=== PATIENT | male | born 1960 | race Caucasian/White ===

== ENCOUNTER → 2021-05-27 13:48 | Outpatient (CLI) | payer OTHER, SELFPAY ==
[2021-05-27 14:21] LABS: COVID19 -Nasal RAPID POSITIVE (Negative)
== END ==
PROVIDERS: Visit Provider Physician Assistant
DX: U07.1 COVID-19 (principal); R06.02 Shortness of breath; R50.9 Fever, unspecified
CPT/HCPCS: 87635

== ENCOUNTER 2021-05-27 14:09 | Observation (INO) | payer OTHER, SELFPAY ==
[2021-05-27] VITALS (13 sets, daily range): BP systolic 119–125; BP diastolic 70–74; PULSE 69–122; RESP 14–29; TEMP 39.3–39.5; O2SAT 91–96
--- NOTE | 2021-05-27 14:30 | DI.RAD.S_ITS ---
PROCEDURE: XR CHEST 1V INDICATIONS: +COVID TECHNIQUE: One view of the chest was acquired. COMPARISON: None. FINDINGS: Surgical changes and devices: None. Lungs and pleura: Lungs are abnormal with patchy bilateral pneumonia distributed through the lung parenchyma symmetrically, through the upper, mid and lower lungs.. No pleural effusions or pneumothorax. Mediastinum: Mediastinal contours appear normal. Heart size is normal. Bones and chest wall: No suspicious bony lesions. Overlying soft tissues appear unremarkable. IMPRESSION: Patchy bilateral areas of infiltration involving the lung parenchyma symmetrically are present, consistent with the stated clinical history Dictated by: Louis Verdugo M.D. on 05/27/2021 at 15:11 Approved by: Louis Verdugo M.D. on 05/27/2021 at 15:12
[2021-05-27 14:53] LABS: Add Manual Diff / Slide Review NO; Basophils Absolute Auto 0 /uL (0-100); Basophils Percent Auto 0.2 % (0-2); Eosinophils Absolute Auto 0 /uL (0-450); Hematocrit 44.6 % (41-53); Hemoglobin 15.4 g/dL (13.5-17.5); Lymphocytes Absolute Auto 800 /uL (1100-4500); Lymphocytes Percent Auto 16.3 % (25-40); Mean Corpuscular HGB Conc 34.6 % (30-36); Mean Corpuscular Hemoglobin 31.3 PG (26-34); Mean Corpuscular Volume 90.4 fL (80-100); Monocytes Absolute Auto 500 /uL (0-900); Monocytes Percent Auto 9.9 % (3-14); Neutrophils Absolute Auto 3700 /uL (1500-7000); Neutrophils Percent Auto 73.6 % (50-75); Platelet Count 150 X10^3/uL (150-400); Red Blood Cell Count 4.93 X10^6/uL (4.5-5.9); Red Cell Distribution Width 13.9 % (11.6-14.8); White Blood Cell Count 5.1 X10^3/uL (4.5-11.0)
[2021-05-27 15:03] LABS: Lactate (Lactic Acid) 1.2 mmol/L (0.7-2.1); Lactate Dehydrogenase 1616 U/L (313-618)
[2021-05-27 15:05] LABS: Alanine Aminotransferase 78 IU/L (<50); Albumin 4.2 g/dL (3.5-5.0); Albumin Globulin Ratio 1.1 (1.0-2.8); Alkaline Phosphatase 44 U/L (38-126); Aspartate Aminotransferase 196 IU/L (17-59); BUN Creatinine Ratio 31.5 (6-22); Bilirubin Total 0.6 mg/dL (0.2-1.3); Blood Urea Nitrogen 17 mg/dL (9-20); C-Reactive Protein Quant 7.7 mg/dL (<1.0); Carbon Dioxide 23 mmol/L (22-32); Chloride 102 mmol/L (98-107); Estimated Glomerular Filt Rate > 60.0 mL/min (>60); Globulin 3.7 g/dL (1.7-4.1); Glucose 154 mg/dL (80-110); HEMOLYSIS < 15 (0-50); Potassium 3.9 mmol/L (3.4-5.1); Sodium 135 mmol/L (137-145); Total Protein 7.9 g/dL (6.3-8.2)
[2021-05-27] MEDS: ACETAMINOPHEN 325 MG TABLET 975 MG PO (15:13)
[2021-05-27 15:14] LABS: NT-proBNP (BNP-Adult 18+) 110 pg/mL (<125); Troponin I 0.031 ng/mL (0.01-0.034)
[2021-05-27 15:16] LABS: Creatine Kinase 9024 U/L (55-170)
[2021-05-27 15:19] LABS: Procalcitonin 0.48 ng/mL (<0.5)
[2021-05-27 15:29] LABS: CKMB % Relative Index 0.1 % (1.5-5.0); Creatine Kinase MB 8.39 ng/mL (<2.37)
[2021-05-27 15:33] LABS: D Dimer 552 ng/mL (<230)
--- NOTE | 2021-05-27 16:00 | ED.URI ---
HPI - URI/Sore Throat General Chief Complaint: Upper Respiratory Symptoms Stated Complaint: Possible COVID+, Sent from [facility] Time Seen by Provider: 05/27/21 14:24 Source: patient and family Mode of arrival: Ambulatory History of Present Illness HPI Narrative: Patient is a 60-year-old male with history of muscular dystrophy presenting from the walk-in clinic with positive COVID. He was exposed 6 days ago. He has had increased weakness and decreased taste. He has nothing tastes good and is not drinking much fluid. He is currently febrile at 1:03 a.m. and tachycardic. He denies any shortness of breath or chest pain. His oxygen level is 93% on room air. Apparently his daughter had as well. They were told by a physician never to have a vaccine visit could potentially worsen his condition. So he did not get the COVID vaccine. Related Data Home Medications Medication Instructions Recorded Confirmed No Known Home Medications 05/27/21 05/27/21 Allergies Allergy/AdvReac Type Severity Reaction Status Date / Time Penicillins Allergy Intermediate Verified 05/27/21 13:35 Review of Systems Review of Systems ROS Unobtainable: All systems reviewed & are unremarkable except as noted in HPI and below Constitutional Constitutional: Reports body ache(s), Reports chills, Reports fatigue, Reports fever(s) and Reports poor appetite Cardiovascular Cardiovascular: Denies chest pain, Denies edema, Denies irregular heart rhythm, Denies dyspnea and Denies dyspnea on exertion Respiratory Respiratory: Reports cough, Denies dyspnea and Denies dyspnea on exertion Gastrointestinal Gastrointestinal: Denies abdominal pain and Denies nausea Musculoskeletal Musculoskeletal: Denies back pain and Denies myalgias Integumentary/Breasts Skin/Breast: Denies rash Neurologic Neurologic: Reports as per HPI Endocrine Endocrine: Reports fatigue 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) Surgical History (Updated 05/27/21 @ 18:08 by Deepak Ivan DO) No pertinent past surgical history Social History Smoking Status: Never smoker Smoking Status: Never smoker alcohol intake frequency: 3 or more drinks per day Exam Initial Vital Signs Initial Vital Signs: Vital Signs Temperature 103.1 F H 05/27/21 14:10 Pulse Rate 122 H 05/27/21 14:10 Respiratory Rate 20 05/27/21 14:10 Blood Pressure 119/74 05/27/21 14:10 Pulse Oximetry 92 05/27/21 14:10 GENERAL: Alert large 60-year-old male appears to not feel well HEENT: Head atraumatic,EOMI, pupils reactive, face symmetric, moist mucous membranes CARDIOVASCULAR: Tachycardic regular RESPIRATORY: Mild crackles bilaterally no difficulty breathing no respiratory distress ABDOMEN: Soft, nontender. Normoactive bowel sounds all 4 quadrants. No guarding or rebound. EXTREMITIES: Normal range of motion, no clubbing or edema. Neurovascularly intact NEUROLOGICAL: Alert and oriented x4.Normal gait and speech. SKIN: Warm, dry, no laceration, no petechiae, no rashes or lesions. Course Orders Ordered: ED Orders 05/27/21 14:24 EKG-12 Lead Stat 05/27/21 14:25 C-Reactive Protein Quant Stat Complete Blood Count AUTO DIFF Stat Comprehensive Metabolic Panel Stat Lactate (Lactic Acid) Stat Lactate Dehydrogenase Stat NT-proBNP (BNP-Adult 18+) Stat Procalcitonin Stat Troponin & CK Cardiac Panel Stat 05/27/21 14:30 XR chest 1V Stat 05/27/21 15:10 Blood Culture Stat D Dimer Stat 05/27/21 16:53 Urine Culture Stat Urine Microscopic Stat Sodium Chloride (Normal Saline 0.9%) 1,000 mls @ 250 mls/hr IV CONT ENOCH Last Admin: 05/27/21 17:39 Dose: 250 mls/hr Documented by: CTRRIMA Sodium Chloride (Normal Saline 0.9%) 1,000 mls @ 1,000 mls/hr IV BOLUS ONE Stop: 05/27/21 19:54 Last Admin: 05/27/21 19:16 Dose: 1,000 mls/hr Documented by: Discontinued Medications Acetaminophen (Acetaminophen 325 Mg Tablet) 975 mg PO NOW ONE Stop: 05/27/21 14:46 Last Admin: 05/27/21 15:13 Dose: 975 mg Documented by: BTONER Sodium Chloride (Normal Saline 0.9%) 1,000 mls @ 1,000 mls/hr IV BOLUS ONE Stop: 05/27/21 17:06 Last Infusion: 05/27/21 17:38 Dose: 0 mls/hr Documented by: Admin: 05/27/21 16:32 Dose: 1,000 mls/hr Documented by: [email or web address] Vital Signs Vital signs: Vital Signs - 8 hr 05/27/21 14:10 05/27/21 14:37 05/27/21 15:00 Temperature 103.1 F H Pulse Rate 122 H 103 H 101 H Respiratory Rate 20 18 14 Blood Pressure 119/74 Pulse Oximetry 92 92 94 05/27/21 15:30 05/27/21 16:00 05/27/21 16:05 Temperature 102.8 F H Pulse Rate 100 H 113 H Respiratory Rate 15 27 H Blood Pressure 122/74 Pulse Oximetry 93 91 05/27/21 16:30 05/27/21 17:00 Temperature Pulse Rate 95 H 86 Respiratory Rate 17 23 Blood Pressure Pulse Oximetry 92 92 MDM - URI/Sore Throat Lab Data Attestation: I reviewed the patient's lab results. Result diagrams: 05/27/21 14:25 05/27/21 14:25 Labs: Lab Results 05/27/21 05/27/21 05/27/21 Range/Units 14:25 14:25 14:25 WBC 5.1 (4.5-11.0) X10^3/uL RBC 4.93 (4.5-5.9) X10^6/uL Hgb 15.4 (13.5-17.5) g/dL Hct 44.6 (41-53) % MCV 90.4 (80-100) fL MCH 31.3 (26-34) PG MCHC 34.6 (30-36) % RDW 13.9 (11.6-14.8) % Plt Count 150 (150-400) X10^3/uL Neut % (Auto) 73.6 (50-75) % Lymph % (Auto) 16.3 L (25-40) % [place] % (Auto) 9.9 (3-14) % Eos % (Auto) 0.0 L (2-4) % Baso % (Auto) 0.2 (0-2) % Neut # (Auto) 3700 (7895-3584) /uL Lymph # (Auto) 800 L (5999-4527) /uL [place] # (Auto) 500 (0-900) /uL Eos # (Auto) 0 (0-450) /uL Baso # (Auto) 0 (0-100) /uL D-Dimer (<230) ng/mL Sodium 135 L (137-145) mmol/L Potassium 3.9 (3.4-5.1) mmol/L Chloride 102 (98-107) mmol/L Carbon Dioxide 23 (22-32) mmol/L BUN 17 (9-20) mg/dL Creatinine 0.54 L (0.66-1.25) mg/dL Estimated GFR > 60.0 (>60) mL/min BUN/Creatinine Ratio 31.5 H (6-22) Glucose 154 H (80-110) mg/dL Lactate (0.7-2.1) mmol/L Calcium 9.0 (8.4-10.2) mg/dL Total Bilirubin 0.6 (0.2-1.3) mg/dL AST 196 H (17-59) IU/L ALT 78 H (<50) IU/L Alkaline Phosphatase 44 (38-126) U/L Lactate Dehydrogenase (313-618) U/L Total Creatine Kinase 9024 H (55-170) U/L CK-MB (CK-2) 8.39 H (<2.37) ng/mL CK-MB (CK-2) Rel Index 0.1 L (1.5-5.0) % Troponin I 0.031 (0.01-0.034) ng/mL C-Reactive Protein 7.7 H (<1.0) mg/dL NT-Pro-B Natriuret Pep 110 (<125) pg/mL Total Protein 7.9 (6.3-8.2) g/dL Albumin 4.2 (3.5-5.0) g/dL Globulin 3.7 (1.7-4.1) g/dL Albumin/Globulin Ratio 1.1 (1.0-2.8) Procalcitonin 0.48 (<0.5) ng/mL Urine RBC (0-5/HPF) Urine WBC (0-5/HPF) Ur Transition Epith Cell (0-5/HPF) Ur Renal Epithelial Cell (0-1/HPF) Amorphous Sediment Urine Bacteria (None) Hyaline Casts (None) Granular Casts (None) Other Casts Urine Mucus (Negative) Ur Culture Indicated? 05/27/21 05/27/21 05/27/21 Range/Units 14:25 14:25 15:10 WBC (4.5-11.0) X10^3/uL RBC (4.5-5.9) X10^6/uL Hgb (13.5-17.5) g/dL Hct (41-53) % MCV (80-100) fL MCH (26-34) PG MCHC (30-36) % RDW (11.6-14.8) % Plt Count (150-400) X10^3/uL Neut % (Auto) (50-75) % Lymph % (Auto) (25-40) % [place] % (Auto) (3-14) % Eos % (Auto) (2-4) % Baso % (Auto) (0-2) % Neut # (Auto) (6814-1991) /uL Lymph # (Auto) (0206-1464) /uL [place] # (Auto) (0-900) /uL Eos # (Auto) (0-450) /uL Baso # (Auto) (0-100) /uL D-Dimer 552 H (<230) ng/mL Sodium (137-145) mmol/L Potassium (3.4-5.1) mmol/L Chloride (98-107) mmol/L Carbon Dioxide (22-32) mmol/L BUN (9-20) mg/dL Creatinine (0.66-1.25) mg/dL Estimated GFR (>60) mL/min BUN/Creatinine Ratio (6-22) Glucose (80-110) mg/dL Lactate 1.2 (0.7-2.1) mmol/L Calcium (8.4-10.2) mg/dL Total Bilirubin (0.2-1.3) mg/dL AST (17-59) IU/L ALT (<50) IU/L Alkaline Phosphatase (38-126) U/L Lactate Dehydrogenase 1616 H (313-618) U/L Total Creatine Kinase (55-170) U/L CK-MB (CK-2) (<2.37) ng/mL CK-MB (CK-2) Rel Index (1.5-5.0) % Troponin I (0.01-0.034) ng/mL C-Reactive Protein (<1.0) mg/dL NT-Pro-B Natriuret Pep (<125) pg/mL Total Protein (6.3-8.2) g/dL Albumin (3.5-5.0) g/dL Globulin (1.7-4.1) g/dL Albumin/Globulin Ratio (1.0-2.8) Procalcitonin (<0.5) ng/mL Urine RBC (0-5/HPF) Urine WBC (0-5/HPF) Ur Transition Epith Cell (0-5/HPF) Ur Renal Epithelial Cell (0-1/HPF) Amorphous Sediment Urine Bacteria (None) Hyaline Casts (None) Granular Casts (None) Other Casts Urine Mucus (Negative) Ur Culture Indicated? 05/27/21 Range/Units 16:53 WBC (4.5-11.0) X10^3/uL RBC (4.5-5.9) X10^6/uL Hgb (13.5-17.5) g/dL Hct (41-53) % MCV (80-100) fL MCH (26-34) PG MCHC (30-36) % RDW (11.6-14.8) % Plt Count (150-400) X10^3/uL Neut % (Auto) (50-75) % Lymph % (Auto) (25-40) % [place] % (Auto) (3-14) % Eos % (Auto) (2-4) % Baso % (Auto) (0-2) % Neut # (Auto) (5036-7018) /uL Lymph # (Auto) (6895-0769) /uL [place] # (Auto) (0-900) /uL Eos # (Auto) (0-450) /uL Baso # (Auto) (0-100) /uL D-Dimer (<230) ng/mL Sodium (137-145) mmol/L Potassium (3.4-5.1) mmol/L Chloride (98-107) mmol/L Carbon Dioxide (22-32) mmol/L BUN (9-20) mg/dL Creatinine (0.66-1.25) mg/dL Estimated GFR (>60) mL/min BUN/Creatinine Ratio (6-22) Glucose (80-110) mg/dL Lactate (0.7-2.1) mmol/L Calcium (8.4-10.2) mg/dL Total Bilirubin (0.2-1.3) mg/dL AST (17-59) IU/L ALT (<50) IU/L Alkaline Phosphatase (38-126) U/L Lactate Dehydrogenase (313-618) U/L Total Creatine Kinase (55-170) U/L CK-MB (CK-2) (<2.37) ng/mL CK-MB (CK-2) Rel Index (1.5-5.0) % Troponin I (0.01-0.034) ng/mL C-Reactive Protein (<1.0) mg/dL NT-Pro-B Natriuret Pep (<125) pg/mL Total Protein (6.3-8.2) g/dL Albumin (3.5-5.0) g/dL Globulin (1.7-4.1) g/dL Albumin/Globulin Ratio (1.0-2.8) Procalcitonin (<0.5) ng/mL Urine RBC 0-1/hpf (0-5/HPF) Urine WBC 5-10/hpf H (0-5/HPF) Ur Transition Epith Cell 0-1/hpf (0-5/HPF) Ur Renal Epithelial Cell 5-10/hpf H (0-1/HPF) Amorphous Sediment 1+ Urine Bacteria Few (2-10) H (None) Hyaline Casts 1-5/lpf (None) Granular Casts 1-5/lpf (None) Other Casts 3-5 renal cell cast Urine Mucus 2+ H (Negative) Ur Culture Indicated? Specimen cultured Urine Dip Bedside Urine Glucose Negative Bedside Urine Bilirubin - Negative Bedside Urine Ketone +++ 80 Urine Specific [place] 1.020 Bedside Urine Occult Blood +++ Bedside Urine pH 6.0 Bedside Urine Protein +++ 300 Bedside Urine Urobilinogen - Negative Bedside Urine Nitrite - Negative Bedside Urine Leukocytes - Negative Esterase Imaging Data Chest x-ray: Radiologist's Impression: PROCEDURE: XR CHEST 1V INDICATIONS: +COVID TECHNIQUE: One view of the chest was acquired. COMPARISON: None. FINDINGS: Surgical changes and devices: None. Lungs and pleura: Lungs are abnormal with patchy bilateral pneumonia distributed through the lung parenchyma symmetrically, through the upper, mid and lower lungs.. No pleural effusions or pneumothorax. Mediastinum: Mediastinal contours appear normal. Heart size is normal. Bones and chest wall: No suspicious bony lesions. Overlying soft tissues appear unremarkable. IMPRESSION: Patchy bilateral areas of infiltration involving the lung parenchyma symmetrically are present, consistent with the stated clinical history Dictated by: Louis Verdugo M.D. on 05/27/2021 at 15:11 ECG Data Interpretation: Sinus tachycardia rate 103 MN interval [address] changes artifact noted MDM Narrative Medical decision making narrative: Patient is COVID positive. 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 His oxygen is 92-94% on room air. He is not requiring oxygen at this time although chest x-ray does show COVID pneumonia. COVID markers are diffusely elevated including CPK which is greater than 9000. COVID can cause rhabdomyolysis however so can his disease. It is difficult to determine what his baseline is. Patient states that his urine always gets dark when he is sick but does generally clear quickly. Dr. Hermosillo in the ED to see and evaluate patient for admission. Patient is extremely hesitant to stay in hospital. He says he is quite anxious about it and would much rather go home. I have offered him Ativan in order to stay in the hospital. At this time still adamant about going home. I have explained that muscle breakdown can cause severe damage to kidneys leading to dialysis. He understands this. I am worried about his ability to drink fluid since he is not been able to do so. I have expressed this concern to both he and his . His states that she will get Gatorade and water for him to drink and will push the fluids hard. If he is not drinking she has no problem bringing him back to the emergency department. At this time Dr. Hermosillo agrees with discharge and patient is discharged from the emergency department. He received 3 L of IV fluids total here. I have discussed with him reasons to return including decreased intake along with Discharge Plan Departure Patient Disposition: Home Clinical Impression: COVID-19, Rhabdomyolysis due to COVID-19, Muscular dystrophy
[2021-05-27] MEDS: SODIUM CHLORIDE 0.9% 1,000 ML 1000 ML IV ×2 (16:32→19:16)
[2021-05-27 17:26] LABS: Amorphous Sediment Urine 1+; RBC Urine 0-1/HPF (0-5/HPF); Renal Epithelial Cells Urine 5-10/HPF (0-1/HPF); Transitional Epi Cells Urine 0-1/HPF (0-5/HPF); WBC Urine 5-10/HPF (0-5/HPF)
[2021-05-27 17:27] LABS: Bacteria Urine Few (2-10); Culture Indicated Urine Specimen Cultured; Granular Casts Urine 1-5/LPF; Hyaline Casts Urine 1-5/LPF; Mucus Urine 2+ (Negative); Other Casts Urine 3-5 Renal Cell Cast
[2021-05-27] MEDS: SODIUM CHLORIDE 0.9% 1,000 ML 250 ML IV (17:39)
--- NOTE | 2021-05-27 18:01 | PM.HP.1 ---
History of Present Illness History of Present Illness Date Patient Seen: 05/27/21 Time Patient Seen: 18:05 Chief complaint: Possible COVID+, Sent from [facility] Narrative: This is a 60-year-old male with a past medical history of Flaco's disease (Glycogen storage disease type V), but no other known PMH who presented to the walk in clinic today with worsening COVID symptoms. Patient's daughter had COVID and he began feeling ill approximately 5 days ago with fevers, muscle aches, fatigue, and diarrhea that has been present for the past 2 or 3 days. He has minimal shortness of breath symptoms currently, and was not able to eat or drink much initially but finally was starting to drink fluids as of yesterday. He commonly gets very dark urine, typically when he gets sick but usually resolves. He has not seen a specialist for his chronic disease since he lived in [place] almost a decade ago. He has not established with a primary care here in the area. He did not get the COVID-19 vaccine. In the emergency room, the patient was febrile to 103, but saturating well on room air. CXR showed bilateral hazy infiltrates. Laboratory evaluation showed an unremarkable CBC. D diameter was negative for his age but elevated of 552. Chemistries were notable for a creatinine of 0.54, glucose of 154, AST of 196, ALT of 78, LDH of 1616, total CK of 9024. CRP was elevated at 7.7. Procalcitonin was 0.48. Urinalysis showed 0-1 rbc's, 5-10 wbc's, hyaline and granular casts, renal cell casts. Dip was notable for 3+ blood consitent with myoglobulinuria. Patient was recommended for admission and seen in the emergency room, counseled on the reason for admission and possible progression to renal failure, and after discussion patient preferred to try and manage at home. 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) Surgical History (Updated 05/27/21 @ 18:08 by Deepak Ivan DO) No pertinent past surgical history Family & Social History Safety & Behavioral: Feels Safe in Current Yes Environment Been Physically Hurt or No Threatened By a Person Tobacco & Substance use: Smoking Status Never smoker alcohol intake frequency 3 or more drinks per day Meds Home Medications and Allergies Home Medications Medication Instructions Recorded Confirmed Type No Known Home Medications 05/27/21 05/27/21 History Allergies Allergy/AdvReac Type Severity Reaction Status Date / Time Penicillins Allergy Intermediate Verified 05/27/21 13:35 Review of Systems Review of Systems Narrative: All other systems reviewed with the patient and are negative unless otherwise stated. Exam Vital Signs (past 8 hours): - 05/27/21 14:10 05/27/21 14:37 05/27/21 15:00 Temperature 103.1 F H Pulse Rate 122 H 103 H 101 H Respiratory Rate 20 18 14 Blood Pressure 119/74 Pulse Oximetry 92 92 94 05/27/21 15:30 05/27/21 16:00 05/27/21 16:05 Temperature 102.8 F H Pulse Rate 100 H 113 H Respiratory Rate 15 27 H Blood Pressure 122/74 Pulse Oximetry 93 91 05/27/21 16:30 05/27/21 17:00 Temperature Pulse Rate 95 H 86 Respiratory Rate 17 23 Blood Pressure Pulse Oximetry 92 92 Oxygen Delivery Method Room Air Narrative Exam Narrative: GENERAL APPEARANCE: Well developed, well nourished, but mildly ill appearing obese male in no acute distress. SKIN: Inspection of the skin reveals no rashes, ulcerations or petechiae. HEENT: Normocephalic atraumatic, extraocular muscles are intact, oropharynx is clear and mucous membranes are moist, neck is supple without adenopathy NECK: Supple and symmetric. There was no thyroid enlargement, and no tenderness, or masses were felt. CHEST: Normal AP diameter and normal contour without any kyphoscoliosis. LUNGS: Auscultation of the lungs revealed no wheezes, rhonchi, or rales. CARDIOVASCULAR: There was a regular rate and rhythm without any murmurs, gallops, rubs. Peripheral pulses were 2+ and symmetric. ABDOMEN: Soft and nontender with normal bowel sounds. No ascites was noted. MUSCULOSKELETAL: There was no tenderness or effusions noted. Muscle strength and tone were normal. EXTREMITIES: No cyanosis, clubbing. Mild chronic edema LLE. NEUROLOGIC: Alert and oriented x 3. Normal affect. Strength is +5/5 in the Upper Extremities and Lower Extremities Bilaterally. Sensation to touch was normal. Objective ECG Impression: Sinus tachycardia, borderline rightward axis. No evidence of acute ischemia. Imaging Chest x-ray: My impression: Bilateral hazy opacities, air bronchogram noted on the right. Consistent with COVID pneumonia. No cardiomegaly. Labs Result Diagrams: 05/27/21 14:25 05/27/21 14:25 Labs: Laboratory Results - last 24 hr 05/27/21 05/27/21 05/27/21 14:25 14:25 14:25 WBC 5.1 RBC 4.93 Hgb 15.4 Hct 44.6 MCV 90.4 MCH 31.3 MCHC 34.6 RDW 13.9 Plt Count 150 Neut % (Auto) 73.6 Lymph % (Auto) 16.3 L [place] % (Auto) 9.9 Eos % (Auto) 0.0 L Baso % (Auto) 0.2 Neut # (Auto) 3700 Lymph # (Auto) 800 L [place] # (Auto) 500 Eos # (Auto) 0 Baso # (Auto) 0 D-Dimer Sodium 135 L Potassium 3.9 Chloride 102 Carbon Dioxide 23 BUN 17 Creatinine 0.54 L Estimated GFR > 60.0 BUN/Creatinine Ratio 31.5 H Glucose 154 H Lactate Calcium 9.0 Total Bilirubin 0.6 AST 196 H ALT 78 H Alkaline Phosphatase 44 Lactate Dehydrogenase Total Creatine Kinase 9024 H CK-MB (CK-2) 8.39 H CK-MB (CK-2) Rel Index 0.1 L Troponin I 0.031 C-Reactive Protein 7.7 H NT-Pro-B Natriuret Pep 110 Total Protein 7.9 Albumin 4.2 Globulin 3.7 Albumin/Globulin Ratio 1.1 Procalcitonin 0.48 Urine RBC Urine WBC Ur Transition Epith Cell Ur Renal Epithelial Cell Amorphous Sediment Urine Bacteria Hyaline Casts Granular Casts Other Casts Urine Mucus Ur Culture Indicated? 05/27/21 05/27/21 05/27/21 14:25 14:25 15:10 WBC RBC Hgb Hct MCV MCH MCHC RDW Plt Count Neut % (Auto) Lymph % (Auto) [place] % (Auto) Eos % (Auto) Baso % (Auto) Neut # (Auto) Lymph # (Auto) [place] # (Auto) Eos # (Auto) Baso # (Auto) D-Dimer 552 H Sodium Potassium Chloride Carbon Dioxide BUN Creatinine Estimated GFR BUN/Creatinine Ratio Glucose Lactate 1.2 Calcium Total Bilirubin AST ALT Alkaline Phosphatase Lactate Dehydrogenase 1616 H Total Creatine Kinase CK-MB (CK-2) CK-MB (CK-2) Rel Index Troponin I C-Reactive Protein NT-Pro-B Natriuret Pep Total Protein Albumin Globulin Albumin/Globulin Ratio Procalcitonin Urine RBC Urine WBC Ur Transition Epith Cell Ur Renal Epithelial Cell Amorphous Sediment Urine Bacteria Hyaline Casts Granular Casts Other Casts Urine Mucus Ur Culture Indicated? 05/27/21 16:53 WBC RBC Hgb Hct MCV MCH MCHC RDW Plt Count Neut % (Auto) Lymph % (Auto) [place] % (Auto) Eos % (Auto) Baso % (Auto) Neut # (Auto) Lymph # (Auto) [place] # (Auto) Eos # (Auto) Baso # (Auto) D-Dimer Sodium Potassium Chloride Carbon Dioxide BUN Creatinine Estimated GFR BUN/Creatinine Ratio Glucose Lactate Calcium Total Bilirubin AST ALT Alkaline Phosphatase Lactate Dehydrogenase Total Creatine Kinase CK-MB (CK-2) CK-MB (CK-2) Rel Index Troponin I C-Reactive Protein NT-Pro-B Natriuret Pep Total Protein Albumin Globulin Albumin/Globulin Ratio Procalcitonin Urine RBC 0-1/hpf Urine WBC 5-10/hpf H Ur Transition Epith Cell 0-1/hpf Ur Renal Epithelial Cell 5-10/hpf H Amorphous Sediment 1+ Urine Bacteria Few (2-10) H Hyaline Casts 1-5/lpf Granular Casts 1-5/lpf Other Casts 3-5 renal cell cast Urine Mucus 2+ H Ur Culture Indicated? Specimen cultured Assessment & Plan Assessment & Plan narrative: This is a 60-year-old male with a past medical history of Flaco's disease (Glycogen storage disease type V), but no other known PMH who presented to the walk in clinic today with worsening COVID symptoms. Patient was recommended for observation admission given rhabdomyolysis and COVID infection, counseled on the reason for admission and possible progression to renal failure, and after discussion patient preferred to try and manage at home. 1. Rhabdomyolysis, acute - CK 9024 on admission. Likely secondary to acute dehydation, COVID pneumonia, and his glycogen storage disease which puts him at risk for muscle breakdown. Patient very much wanted to go home, with his prior episodes of dark urine while ill he felt like he could manage this at home. Risk of progression to renal failure was discussed. He will receive another 2nd liter of IV fluids prior to discharge. - Recommend he establish with a PCP as soon as possible. He was given a list of providers in the area. - Recommended prompt return if patient has continued dark urine or darkening urine, decreasing urine output or edema which may indicate worsening renal function. Also recommended to return if worsening nausea, vomiting, diarrhea or inability to tolerate aggressive oral rehydration at home. - recommended patient maintain aggressive oral rehydration at home. - his creatinine is currently normal. 2. COVID 19 pneumonia, acute, present on admission - patient's daughter was COVID +, has been symptomatic now for 5 days. - no respiratory failure currently or hypoxia. His glycogen storage disease does not necessarily put him at risk for progression, however his obesity does. - recommended patient obtain pulse oximeter, return if O2 saturations are <89% while at home, or he is unable to tolerate adequate PO intake. - can continue symptomatic care at home for now. 3. alcoholic hepatitis - AST / ALT elevations in typical 2:1 pattern. Recommend cessation of alcohol. Tbili is 0.6, no indication for steroids at this time. 4. 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 He has not had follow up care for nearly a decade. Counseled on establishing care at least with a PCP if not finding a new specialist in the area. Code: full, surrogate decision maker is the patient's spouse. Dispo: patient preferred to discharge home rather than proceed with planned observation admission after discussion about rhabdomyolysis and discussion of the potential risks. Please note this H&P will serve as the discharge summary as well given the above discussions. COVID-19 COVID-19 status: Positive Quality MIPS - Admit I confirm the patient?s Advance Care Plan is present, Code status is documented, Surrogate decision maker is in patient?s record [If Yes, STOP here]: Yes MIPS - DC The patient has current or prior documentation of left ventricular ejection fraction (LVEF) less than 40%, or moderate or severely depressed left ventricular systolic function.: No
--- NOTE | 2021-06-08 16:59 | PC.NURSE ---
Late Entry; NS infusion initiated at 17:39, complete at 22:40. NS infusion initiated at 19:16, complete at 20:17.
== END 2021-05-27 19:52 | disposition home or self-care (01) ==
LOC: ED 17:20 → AC 17:20
PROVIDERS: Admitting Provider Internal Medicine; Emergency Provider Emergency Medicine; Referring Provider Emergency Medicine; Visit Provider Internal Medicine
DX: U07.1 COVID-19 (principal); J12.82 Pneumonia due to coronavirus disease 2019; M62.82 Rhabdomyolysis; E74.04 McArdle disease; K70.10 Alcoholic hepatitis without ascites; E66.9 Obesity, unspecified; R06.02 Shortness of breath; R50.9 Fever, unspecified
CPT/HCPCS: 36415; 71045; 80053; 81003; 81015; 82550; 82553; 83605; 83615; 83880; 84145; 84484; 85025; 85379; 86140; 87040; 87086; 87635; 93005; 96360; 96361; 99284; G0378

== ENCOUNTER 2021-05-30 08:49 | Emergency (ER) | payer OTHER, SELFPAY ==
[2021-05-30] VITALS (28 sets, daily range): BP systolic 100–126; BP diastolic 57–81; PULSE 62–92; RESP 16–38; TEMP 32–38.8; O2SAT 80–98; BMI 41.2
--- NOTE | 2021-05-30 09:00 | DI.RAD.S_ITS ---
PROCEDURE: XR CHEST 1V INDICATIONS: COVID hypoxia TECHNIQUE: One view of the chest was acquired. COMPARISON: [facility], CR, XR CHEST 1V, 05/27/2021, 14:53. FINDINGS: Surgical changes and devices: None. Lungs and pleura: Severe bilateral patchy airspace opacity, worsened. No pleural effusions or pneumothorax. Mediastinum: Mediastinal contours appear unchanged. Heart size is within normal limits. Bones and chest wall: No suspicious bony lesions. Overlying soft tissues appear unremarkable. IMPRESSION: Worsening severe bilateral patchy airspace opacity. Findings in keeping with COVID-19. Dictated by: Latrell Canales M.D. on 05/30/2021 at 9:42 Approved by: Latrell Canales M.D. on 05/30/2021 at 9:44
[2021-05-30] MEDS: DEXAMETHASONE 10 MG/ML VIAL IV (09:14)
[2021-05-30] MEDS: REMDESIVIR 200 MG in SODIUM CHLORIDE 0.9% 210 ML 250 ML IV (09:15)
--- NOTE | 2021-05-30 09:19 | ED_ITS ---
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 At that time he was found to have rhabdomyolysis with CPK greater than 9000. Was evaluated by hospitalist however patient was quite adamant about going home despite risks is he presents today with increasing shortness of breath and low oxygen levels. He states that his oxygen started decreasing at home yesterday was in the mid 80s EMS reports low to mid 80s on room air. Currently on 7-8 L nasal cannula. He reports fevers and chills. No nausea or vomiting occasional diarrhea. Increasing shortness of breath. He states that his urine initially was quite dark but it has lightened some. He has been drinking vitamin water as much as he can. now is also COVID positive. Related Data Home Medications Medication Instructions Recorded Confirmed No Known Home Medications 05/27/21 05/27/21 Allergies Allergy/AdvReac Type Severity Reaction Status Date / Time Penicillins Allergy Intermediate Verified 05/30/21 09:40 Review of Systems Review of Systems ROS Unobtainable: All systems reviewed & are unremarkable except as noted in HPI and below Constitutional Constitutional: Reports body ache(s), Reports chills, Denies frequent falls and Reports poor appetite Eyes Eyes: Denies blurry vision ENT Ears, Nose, Mouth, and Throat: Denies dizziness, Reports dry mouth and Denies sinus pain Cardiovascular Cardiovascular: Denies chest pain, Denies syncope, Denies lightheadedness, Reports dyspnea on exertion and Reports orthopnea Respiratory Respiratory: Reports chest congestion and Reports dyspnea on exertion Gastrointestinal Gastrointestinal: Denies abdominal pain, Denies constipation and Denies nausea Genitourinary Genitourinary: Reports as per HPI, Denies urinary frequency and Denies urinary hesitancy Musculoskeletal Musculoskeletal: Reports myalgias Integumentary/Breasts Skin/Breast: Denies rash Neurologic Neurologic: Denies dizziness, Denies syncope and Denies frequent falls Patient History Medical History (Updated 05/30/21 @ 19:33 by Dorinda Funk DO) 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) Surgical History (Updated 05/27/21 @ 18:08 by Deepak Ivan DO) No pertinent past surgical history Social History Smoking Status: Never smoker Smoking Status: Never smoker alcohol intake frequency: 3 or more drinks per day Exam Initial Vital Signs Initial Vital Signs: Vital Signs Temperature 102 F H 05/30/21 08:50 Pulse Rate 91 H 05/30/21 08:50 Respiratory Rate 25 H 05/30/21 08:50 Blood Pressure 117/76 05/30/21 08:50 Pulse Oximetry 87 L 05/30/21 08:50 GENERAL: 60-year-old male appears in mild to moderate respiratory distress HEENT: Head atraumatic,EOMI, pupils reactive, face symmetric, moist mucous membranes CARDIOVASCULAR: Regular rate and rhythm without murmurs, rubs or gallops. RESPIRATORY: Mild coarse breath sounds bilaterally, tachypnea ABDOMEN: Soft, nontender. Normoactive bowel sounds all 4 quadrants. No guarding or rebound. EXTREMITIES: Normal range of motion, no clubbing or edema. Neurovascularly intact NEUROLOGICAL: Alert and oriented x4.Normal gait and speech. Cranial nerves II through XII grossly intact. SKIN: Warm, dry, no laceration, no petechiae, no rashes or lesions. Course Orders Ordered: ED Orders 05/30/21 14:15 COVID19 - ADMIT (DRAWING IN HAND swab/PCR) Stat Creatine Kinase Stat Lactate (Lactic Acid) Stat Sodium Chloride (Normal Saline 0.9%) 1,000 mls @ 200 mls/hr IV CONT ENOCH Last Infusion: 05/30/21 16:08 Dose: 0 mls/hr Documented by: Admin: 05/30/21 11:56 Dose: 200 mls/hr Documented by: JENNIFER Discontinued Medications Acetaminophen (Acetaminophen 325 Mg Tablet) 975 mg PO NOW ONE Stop: 05/30/21 09:24 Last Admin: 05/30/21 09:25 Dose: 975 mg Documented by: LUPE Dexamethasone (Dexamethasone 10 Mg/Ml Vial) 10 mg IV NOW ONE Stop: 05/30/21 09:00 Last Admin: 05/30/21 09:14 Dose: 10 mg Documented by: LUPE Hydromorphone HCl (Hydromorphone 1 Mg Inj) 1 mg IV NOW ONE Stop: 05/30/21 11:51 Last Admin: 05/30/21 11:55 Dose: 1 mg Documented by: JENNIFER Remdesivir 200 mg/ Sodium (Chloride) 250 mls @ 250 mls/hr IV NOW ONE Stop: 05/30/21 09:00 Last Infusion: 05/30/21 10:44 Dose: 0 mls/hr Documented by: Admin: 05/30/21 09:15 Dose: 250 mls/hr Documented by: LUPE Ceftriaxone Sodium 2,000 mg/ (Sodium Chloride) 100 mls @ 200 mls/hr IV NOW ONE Stop: 05/30/21 14:45 Last Infusion: 05/30/21 15:31 Dose: 0 mls/hr Documented by: Admin: 05/30/21 15:01 Dose: 200 mls/hr Documented by: SEDRICK Azithromycin 500 mg/ Dextrose 250 mls @ 250 mls/hr IV NOW ONE Stop: 05/30/21 14:45 Last Infusion: 05/30/21 16:08 Dose: 0 mls/hr Documented by: Admin: 05/30/21 15:38 Dose: 250 mls/hr Documented by: JENNIFER Lidocaine HCl (Lidocaine 2% (Glydo) 6 Ml Gel) 6 ml TOP NOW ONE Stop: 05/30/21 13:11 Last Admin: 05/30/21 13:16 Dose: 6 ml Documented by: JENNIFER Vital Signs Vital signs: Vital Signs - 8 hr 05/30/21 11:53 05/30/21 12:00 05/30/21 12:01 Temperature Pulse Rate 67 73 72 Respiratory Rate 26 H 31 H 27 H Blood Pressure 126/64 100/58 L Pulse Oximetry 92 91 91 05/30/21 12:30 05/30/21 13:00 05/30/21 13:01 Temperature Pulse Rate 71 67 70 Respiratory Rate 31 H 16 17 Blood Pressure 106/59 L 104/57 L Pulse Oximetry 94 93 94 05/30/21 13:30 05/30/21 13:31 05/30/21 14:00 Temperature 98.1 F 99.1 F Pulse Rate 75 73 73 Respiratory Rate 20 22 25 H Blood Pressure 108/58 L Pulse Oximetry 95 96 95 05/30/21 14:11 05/30/21 14:30 05/30/21 14:33 Temperature 99.1 F 99.1 F Pulse Rate 71 68 Respiratory Rate 26 H 24 Blood Pressure 113/68 116/61 116/81 Pulse Oximetry 96 98 05/30/21 15:00 05/30/21 15:30 Temperature 99.0 F 98.8 F Pulse Rate 65 64 Respiratory Rate 28 H 26 H Blood Pressure 103/64 106/57 L Pulse Oximetry 93 95 MDM - SOB/Dyspnea Lab Data Result diagrams: 05/30/21 09:15 05/30/21 09:15 Labs: Lab Results 05/30/21 05/30/21 05/30/21 Range/Units 09:15 09:15 09:15 WBC 4.6 (4.5-11.0) X10^3/uL RBC 4.66 (4.5-5.9) X10^6/uL Hgb 14.3 (13.5-17.5) g/dL Hct 41.3 (41-53) % MCV 88.6 (80-100) fL MCH 30.7 (26-34) PG MCHC 34.6 (30-36) % RDW 13.9 (11.6-14.8) % Plt Count 155 (150-400) X10^3/uL Neut % (Auto) 85.7 H (50-75) % Lymph % (Auto) 9.7 L (25-40) % [place] % (Auto) 4.5 (3-14) % Eos % (Auto) 0.0 L (2-4) % Baso % (Auto) 0.1 (0-2) % Neut # (Auto) 4000 (4064-2494) /uL Lymph # (Auto) 400 L (0557-5249) /uL [place] # (Auto) 200 (0-900) /uL Eos # (Auto) 0 (0-450) /uL Baso # (Auto) 0 (0-100) /uL D-Dimer 2519 H (<230) ng/mL Sodium (137-145) mmol/L Potassium (3.4-5.1) mmol/L Chloride (98-107) mmol/L Carbon Dioxide (22-32) mmol/L BUN (9-20) mg/dL Creatinine (0.66-1.25) mg/dL Estimated GFR (>60) mL/min BUN/Creatinine Ratio (6-22) Glucose (80-110) mg/dL Lactate (0.7-2.1) mmol/L Calcium (8.4-10.2) mg/dL Ferritin (18-464) ng/mL Total Bilirubin (0.2-1.3) mg/dL AST (17-59) IU/L ALT (<50) IU/L Alkaline Phosphatase (38-126) U/L Lactate Dehydrogenase (313-618) U/L Total Creatine Kinase (55-170) U/L CK-MB (CK-2) (<2.37) ng/mL CK-MB (CK-2) Rel Index (1.5-5.0) % Troponin I (0.01-0.034) ng/mL C-Reactive Protein (<1.0) mg/dL NT-Pro-B Natriuret Pep (<125) pg/mL Total Protein (6.3-8.2) g/dL Albumin (3.5-5.0) g/dL Globulin (1.7-4.1) g/dL Albumin/Globulin Ratio (1.0-2.8) Procalcitonin 1.44 H (<0.5) ng/mL SARS-CoV-2 (PCR) (Negative) 05/30/21 05/30/21 05/30/21 Range/Units 09:15 09:15 14:15 WBC (4.5-11.0) X10^3/uL RBC (4.5-5.9) X10^6/uL Hgb (13.5-17.5) g/dL Hct (41-53) % MCV (80-100) fL MCH (26-34) PG MCHC (30-36) % RDW (11.6-14.8) % Plt Count (150-400) X10^3/uL Neut % (Auto) (50-75) % Lymph % (Auto) (25-40) % [place] % (Auto) (3-14) % Eos % (Auto) (2-4) % Baso % (Auto) (0-2) % Neut # (Auto) (8284-3571) /uL Lymph # (Auto) (0235-9191) /uL [place] # (Auto) (0-900) /uL Eos # (Auto) (0-450) /uL Baso # (Auto) (0-100) /uL D-Dimer (<230) ng/mL Sodium 127 L (137-145) mmol/L Potassium 3.4 (3.4-5.1) mmol/L Chloride 98 (98-107) mmol/L Carbon Dioxide 24 (22-32) mmol/L BUN 9 (9-20) mg/dL Creatinine 0.34 L (0.66-1.25) mg/dL Estimated GFR > 60.0 (>60) mL/min BUN/Creatinine Ratio 26.5 H (6-22) Glucose 139 H (80-110) mg/dL Lactate 1.8 (0.7-2.1) mmol/L Calcium 7.8 L (8.4-10.2) mg/dL Ferritin 1850 H (18-464) ng/mL Total Bilirubin 0.6 (0.2-1.3) mg/dL AST 1029 H (17-59) IU/L ALT 227 H (<50) IU/L Alkaline Phosphatase 38 (38-126) U/L Lactate Dehydrogenase 6091 H D (313-618) U/L Total Creatine Kinase 96202 H D 63716 H (55-170) U/L CK-MB (CK-2) 29.50 H (<2.37) ng/mL CK-MB (CK-2) Rel Index 0.0 L (1.5-5.0) % Troponin I 0.017 (0.01-0.034) ng/mL C-Reactive Protein 23.4 H (<1.0) mg/dL NT-Pro-B Natriuret Pep 367 H (<125) pg/mL Total Protein 6.2 L (6.3-8.2) g/dL Albumin 3.0 L (3.5-5.0) g/dL Globulin 3.2 (1.7-4.1) g/dL Albumin/Globulin Ratio 0.9 L (1.0-2.8) Procalcitonin (<0.5) ng/mL SARS-CoV-2 (PCR) (Negative) 05/30/21 05/30/21 Range/Units 14:15 14:15 WBC (4.5-11.0) X10^3/uL RBC (4.5-5.9) X10^6/uL Hgb (13.5-17.5) g/dL Hct (41-53) % MCV (80-100) fL MCH (26-34) PG MCHC (30-36) % RDW (11.6-14.8) % Plt Count (150-400) X10^3/uL Neut % (Auto) (50-75) % Lymph % (Auto) (25-40) % [place] % (Auto) (3-14) % Eos % (Auto) (2-4) % Baso % (Auto) (0-2) % Neut # (Auto) (2752-6036) /uL Lymph # (Auto) (2227-7318) /uL [place] # (Auto) (0-900) /uL Eos # (Auto) (0-450) /uL Baso # (Auto) (0-100) /uL D-Dimer (<230) ng/mL Sodium (137-145) mmol/L Potassium (3.4-5.1) mmol/L Chloride (98-107) mmol/L Carbon Dioxide (22-32) mmol/L BUN (9-20) mg/dL Creatinine (0.66-1.25) mg/dL Estimated GFR (>60) mL/min BUN/Creatinine Ratio (6-22) Glucose (80-110) mg/dL Lactate 1.3 (0.7-2.1) mmol/L Calcium (8.4-10.2) mg/dL Ferritin (18-464) ng/mL Total Bilirubin (0.2-1.3) mg/dL AST (17-59) IU/L ALT (<50) IU/L Alkaline Phosphatase (38-126) U/L Lactate Dehydrogenase (313-618) U/L Total Creatine Kinase (55-170) U/L CK-MB (CK-2) (<2.37) ng/mL CK-MB (CK-2) Rel Index (1.5-5.0) % Troponin I (0.01-0.034) ng/mL C-Reactive Protein (<1.0) mg/dL NT-Pro-B Natriuret Pep (<125) pg/mL Total Protein (6.3-8.2) g/dL Albumin (3.5-5.0) g/dL Globulin (1.7-4.1) g/dL Albumin/Globulin Ratio (1.0-2.8) Procalcitonin (<0.5) ng/mL SARS-CoV-2 (PCR) Positive H (Negative) Imaging Data Chest x-ray: Radiologist's Impression: PROCEDURE: XR CHEST 1V INDICATIONS: COVID hypoxia TECHNIQUE: One view of the chest was acquired. COMPARISON: [facility], CR, XR CHEST 1V, 05/27/2021, 14:53. FINDINGS: Surgical changes and devices: None. Lungs and pleura: Severe bilateral patchy airspace opacity, worsened. No pleural effusions or pneumothorax. Mediastinum: Mediastinal contours appear unchanged. Heart size is within normal limits. Bones and chest wall: No suspicious bony lesions. Overlying soft tissues appear unremarkable. IMPRESSION: Worsening severe bilateral patchy airspace opacity. Findings in keeping with COVID-19. Dictated by: Latrell Canales M.D. on 05/30/2021 at 9:42 Approved by: Latrell Canales M.D. on 05/30/2021 at 9:44 MDM Narrative Medical decision making narrative: Patient is initially placed on high-flow nasal cannula however oxygen requirement quickly escalated requiring up to 88%. We have tried changing position which does increase his O2 slight only bringing it up to 89 90%. He has tried on BiPAP which he seems to like. Patient is put on a hospital bed for comfort and easier positioning. CPK today is found to be greater than 62,000 significant increased from prior. Pritchett catheter is placed for strict I's and O's. He has 700 cc out of dark u rine. Severe bed shortage in this state. We have called numerous places along with [facility] who also states that beds are extremely difficult to find. Concern is that patient may need dialysis. Patient high blood pressure and heart rate remained stable. I initially was quite diaphoretic thought to be from breaking his fever of 102. Procalcitonin is elevated will empirically start antibiotics as well. 1300 Dr. Montes duct installer at [facility] updated patient's symptoms test results agrees that patient does need to be transferred. If they are working on a bed but may be tight. If agrees with IV fluids. 1445-Dr. Montes updated patient's symptoms. Procalcitonin elevated at 1.4 for agrees with IV antibiotics empirically. He has had IV fluids going at 200/ hour. He is doing well on bipap. Critical Care Time Critical Care Time Critical Care Time: Yes Total Critical Care Time: 60 Attestation: The high probability of a clinically significant, sudden or life threatening deterioration of the [cardiovascular] system(s) required my full and direct attention, intervention and personal management. The aggregate critical care time was 60 minutes. This time is in addition to time spent performing reported procedures but includes the following: [x] Data Review and interpretation [x] Patient assessment and monitoring of vital signs [x] Documentation [x] Medication orders and management Discharge Plan Departure Patient Disposition: [facility] Clinical Impression: COVID-19, Rhabdomyolysis due to COVID-19, Respiratory failure, acute Prescriptions: No Action No Known Home Medications RF: 0 Referrals: Miscellaneous,DoctorMD [Primary Care Provider] -
[2021-05-30] MEDS: ACETAMINOPHEN 325 MG TABLET 975 MG PO (09:25)
[2021-05-30 09:29] LABS: Add Manual Diff / Slide Review NO; Basophils Absolute Auto 0 /uL (0-100); Basophils Percent Auto 0.1 % (0-2); Eosinophils Absolute Auto 0 /uL (0-450); Hematocrit 41.3 % (41-53); Hemoglobin 14.3 g/dL (13.5-17.5); Lymphocytes Absolute Auto 400 /uL (1100-4500); Lymphocytes Percent Auto 9.7 % (25-40); Mean Corpuscular HGB Conc 34.6 % (30-36); Mean Corpuscular Hemoglobin 30.7 PG (26-34); Mean Corpuscular Volume 88.6 fL (80-100); Monocytes Absolute Auto 200 /uL (0-900); Monocytes Percent Auto 4.5 % (3-14); Neutrophils Absolute Auto 4000 /uL (1500-7000); Neutrophils Percent Auto 85.7 % (50-75); Platelet Count 155 X10^3/uL (150-400); Red Blood Cell Count 4.66 X10^6/uL (4.5-5.9); Red Cell Distribution Width 13.9 % (11.6-14.8); White Blood Cell Count 4.6 X10^3/uL (4.5-11.0)
[2021-05-30 09:46] LABS: D Dimer 2519 ng/mL (<230)
[2021-05-30 09:51] LABS: Lactate (Lactic Acid) 1.8 mmol/L (0.7-2.1)
[2021-05-30 09:53] LABS: Alanine Aminotransferase 227 IU/L (<50); Albumin Globulin Ratio 0.9 (1.0-2.8); Alkaline Phosphatase 38 U/L (38-126); BUN Creatinine Ratio 26.5 (6-22); Bilirubin Total 0.6 mg/dL (0.2-1.3); Blood Urea Nitrogen 9 mg/dL (9-20); Calcium 7.8 mg/dL (8.4-10.2); Carbon Dioxide 24 mmol/L (22-32); Chloride 98 mmol/L (98-107); Estimated Glomerular Filt Rate > 60.0 mL/min (>60); Globulin 3.2 g/dL (1.7-4.1); Glucose 139 mg/dL (80-110); Potassium 3.4 mmol/L (3.4-5.1); Sodium 127 mmol/L (137-145); Total Protein 6.2 g/dL (6.3-8.2)
[2021-05-30 10:00] LABS: Aspartate Aminotransferase 1029 IU/L (17-59)
[2021-05-30 10:01] LABS: NT-proBNP (BNP-Adult 18+) 367 pg/mL (<125); Troponin I 0.017 ng/mL (0.01-0.034)
[2021-05-30 10:05] LABS: Procalcitonin 1.44 ng/mL (<0.5)
--- NOTE | 2021-05-30 10:25 | PC.NURSE ---
Pt switched to high flow. MD wants O2 sats above 90%. Satting 87%, RT called and will come adjust O2
--- NOTE | 2021-05-30 10:46 | PC.NURSE ---
High flow O2 increased to 60L
[2021-05-30 10:57] LABS: C-Reactive Protein Quant 23.4 mg/dL (<1.0)
[2021-05-30 11:01] LABS: HEMOLYSIS 17 (0-50)
[2021-05-30 11:09] LABS: Ferritin 1850 ng/mL (18-464)
[2021-05-30 11:17] LABS: Lactate Dehydrogenase 6091 U/L (313-618)
[2021-05-30 11:35] LABS: Creatine Kinase 62681 U/L (55-170)
[2021-05-30] MEDS: HYDROMORPHONE 1 MG INJ IV (11:55)
[2021-05-30] MEDS: SODIUM CHLORIDE 0.9% 1,000 ML 200 ML IV (11:56)
[2021-05-30] MEDS: LIDOCAINE 2% (GLYDO) 6 ML GEL TOP (13:16)
[2021-05-30] MEDS: cefTRIAXone 2,000 MG in SODIUM CHLORIDE 0.9% 100 ML 200 ML IV (15:01)
[2021-05-30 15:11] LABS: Lactate (Lactic Acid) 1.3 mmol/L (0.7-2.1)
[2021-05-30 15:26] LABS: Creatine Kinase 56340 U/L (55-170)
[2021-05-30] MEDS: AZITHROMYCIN 500 MG in DEXTROSE 5% IN WATER 250 ML IV (15:38)
[2021-05-30 15:42] LABS: COVID19 - ADMIT (NP swab/PCR) POSITIVE (Negative)
== END 2021-05-30 16:09 | disposition short-term general hospital (02) ==
PROVIDERS: Emergency Provider Emergency Medicine
DX: U07.1 COVID-19 (principal); M62.82 Rhabdomyolysis; J96.91 Respiratory failure, unspecified with hypoxia
CPT/HCPCS: 36415; 71045; 80053; 82550; 82553; 82728; 83605; 83615; 83880; 84145; 84484; 85025; 85379; 86140; 87635; 94660; 96361; 96365; 96367; 96375; 99285; 99291; 99292; C9803; J0696; J1100; J1170